=== PATIENT | male | born 1985 | race Caucasian/White ===

== ENCOUNTER 2017-10-27 00:43 | Observation (INO) | payer OTHER ==
[~2017-10-27] VITALS: Ht 185.4 cm; Wt 115.0 kg
[~2017-10-27 00:43] MED LIST: Z.0.NO CURRENT MEDS
[2017-10-27 00:44] VITALS: BP 152/95; PULSE 68; RESP 16; TEMP 97.9; O2SAT 99
[2017-10-27] MEDS ORDERED: SODIUM CHLORIDE 0.9% FLUSH 10 ML FLUSH IVF PRN (01:00)
[2017-10-27] MEDS ORDERED: NITROGLYCERIN 2% OINT 1 GM PACKET TOPICAL ONE (01:15)
[2017-10-27] MEDS ORDERED: ASPIRIN 325 MG TAB PO ONE (01:15)
[2017-10-27] MEDS ORDERED: NITROGLYCERIN 2% OINT 1 GM PACKET ONE (01:33)
[2017-10-27] MEDS ORDERED: ASPIRIN 325 MG TAB ONE (01:33)
--- NOTE | 2017-10-27 02:17 | RADRPT ---
EXAM DATE/TIME: 10/27/2017 01:11 [place] COMPARISON: CHEST PA & LAT, November 14, 2005, 11:45. INDICATIONS : Chest pressure. MEDICAL HISTORY : None. SURGICAL HISTORY : None. ENCOUNTER: Initial ACUITY: 1 day PAIN SCORE: 5/10 LOCATION: Bilateral chest FINDINGS: A single view of the chest demonstrates the lungs to be symmetrically aerated without evidence of mas s, infiltrate or effusion. The cardiomediastinal contours are unremarkable. Osseous structures are intact. CONCLUSION: Normal one view chest x-ray. Geo Siddiqui MD on October 27, 2017 at 1:35 Board Certified Radiologist. This report was verified electronically.
[2017-10-27 02:28] LABS: AUTOMATED NEUTROPHIL # 4.4 TH/MM3 (1.8-7.7); BASOPHIL # 0.1 TH/MM3 (0-0.2); BASOPHIL % 1.1 % (0.0-2.0); EOSINOPHIL # 0.2 TH/MM3 (0-0.4); EOSINOPHIL % 2.1 % (0.0-4.0); HEMATOCRIT 39.5 % (39.0-51.0); HEMOGLOBIN 13.9 GM/DL (13.0-17.0); LYMPH % 31.3 % (9.0-44.0); LYMPHOCYTE # 2.3 TH/MM3 (1.0-4.8); MEAN CELL VOLUME 84.9 FL (80.0-100.0); MEAN CORPUSCULAR HEMOGLOBIN 29.9 PG (27.0-34.0); MEAN CORPUSCULAR HGB CONC 35.3 % (32.0-36.0); MEAN PLATELET VOLUME 7.5 FL (7.0-11.0); MONO % 7.1 % (0.0-8.0); MONOCYTE # 0.5 TH/MM3 (0-0.9); NEUT % 58.4 % (16.0-70.0); PLATELET COUNT 334 TH/MM3 (150-450); RED BLOOD COUNT 4.66 MIL/MM3 (4.50-5.90); RED CELL DISTRIBUTION WIDTH 12.7 % (11.6-17.2); WHITE BLOOD COUNT 7.5 TH/MM3 (4.0-11.0)
[2017-10-27 02:33] LABS: ALKALINE PHOSPHATASE 57 U/L (45-117); ALT (GPT) 21 U/L (12-78); AST (GOT) 14 U/L (15-37); BICARBONATE 28.1 MEQ/L (21.0-32.0); BLOOD UREA NITROGEN 12 MG/DL (7-18); CHLORIDE 104 MEQ/L (98-107); GLOMERULAR FILTRATION RATE 98 ML/MIN (>89); GLUCOSE,RANDOM 89 MG/DL (74-106); MAGNESIUM 1.8 MG/DL (1.5-2.5); SODIUM (NA) 139 MEQ/L (136-145); TOTAL BILIRUBIN ADULT 0.5 MG/DL (0.2-1.0); TOTAL PROTEIN 7.4 GM/DL (6.4-8.2); TROPONIN I LESS THAN 0.02 NG/ML (0.02-0.05)
[2017-10-27 02:34] LABS: D-DIMER 0.14 MG/L FEU (0.00-0.50); INTERNATIONAL NORMALIZED RATIO 1.1 RATIO; PROTHROMBIN TIME - PATIENT 10.8 SEC (9.8-11.6)
[2017-10-27 06:00] VITALS: BP 101/51; PULSE 54; RESP 20; O2SAT 96
[2017-10-27] MEDS ORDERED: SODIUM CHLORIDE 0.9% FLUSH 10 ML FLUSH IV FLUSH PRN (06:45)
[2017-10-27 07:27] VITALS: BP 143/70; PULSE 57; RESP 17; O2SAT 98
[2017-10-27] MEDS ORDERED: SODIUM CHLORIDE 0.9% FLUSH 10 ML FLUSH IV FLUSH SCH (09:00)
[2017-10-27] MEDS ORDERED: ONDANSETRON HCL 4 MG/2 ML VIAL IV PUSH PRN (09:15)
[2017-10-27] MEDS ORDERED: NITROGLYCERIN 0.4 MG SL 25 TABS/BTL SL PRN (09:15)
[2017-10-27] MEDS ORDERED: ACETAMINOPHEN 500 MG CPLT PO PRN (09:15)
--- NOTE | 2017-10-27 09:15 | EKG ---
Date Performed: 10/27/2017 Time Performed: 04:04:11 PTAGE: 32 years EKG: SINUS BRADYCARDIA WITH SINUS ARRHYTHMIA ST ABNORMALITY, CONSIDER EARLY REPOLARIZATION ABNOR MAL ECG PREVIOUS TRACING : 10/27/2017 01.14 No significant change from previous tracing noted. DOCTOR: Leobardo Coleman Interpretating Date/Time 10/27/2017 09:14:51
--- NOTE | 2017-10-27 09:17 | EKG ---
Date Performed: 10/27/2017 Time Performed: 01:14:24 PTAGE: 32 years EKG: Sinus rhythm WITH SINUS ARRHYTHMIA INFERIOR MYOCARDIAL INFARCTION ABNORMAL ECG NO PREVIOUS TRACING DOCTOR: Leobardo Coleman Interpretating Date/Time 10/27/2017 09:16:21
--- NOTE | 2017-10-27 09:52 | HHI.HP ---
HPI Primary Care Physician No Primary Care Physician Chief Complaint Chest pounding History of Present Illness 32-year-old male with no past significant medical history presents to the emergency room for further evaluation of chest pounding. Onset 11 PM, nonexertional. 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 Characterized as a slow pounding heart beat, accompanied by weakness and mild dyspnea. Denied dizziness, vertigo or chest pain. Severity moderate. Duration 3 hours. No associated symptoms of nausea, vomiting, or diaphoresis. No known precipitating or relieving factors. Denies similar pain in the past. Review of Systems General: No fatigue,weakness, fever, chills, recent illness, or change in appetite. Has been in his general state of health, with mild feelings of cold like symptoms x3 weeks. HEENT: No NGUYEN, no vision changes, no nasal congestion or drainage, no dysphasia CV: As stated above. Never had any chest pain or pressure. No rotation sore dizziness RESP: Dyspnea resolved. Never hurt to take a deep breath. No cough, wheeze, or asthma GI: No nausea, vomiting, bowel changes, diarrhea, constipation, pain, distention , melena, or blood in the stool. No unintentional weight gain or weight loss. No change in appetite, endorses "eating a bad diet." : No dysuria, urgency, frequency EXT: No lower leg edema, no paraesthesias MS: No discomfort, recent injury, trauma, or change in ROM NEURO: No change in memory, difficulty with balance, LOC, motor/sensory deficits PSYCH: No anxiety, depression. Endorses possible current work related stress. SKIN: No rashes, no concerning lesions Past Family Social History Allergies: Coded Allergies: No Known Allergies (Verified Allergy, Unknown, 10/27/17) Past Medical History None Past Surgical History Appendectomy, wisdom teeth extracted Reported Medications Reported Meds & Active Scripts Active No Active Prescriptions or Reported Medications Active Ordered Medications Current Medications Medications (Trade) Dose Ordered Sig/Jae Route Start Time Stop Time Status Last Admin (NS Flush) 2 ml UNSCH PRN IVF 10/27/17 01:00 (NS Flush) 2 ml UNSCH PRN IV FLUSH 10/27/17 06:45 (NS Flush) 2 ml BID IV FLUSH 10/27/17 09:00 (Tylenol) 500 mg Q4H PRN PO 10/27/17 09:15 (Zofran Inj) 4 mg Q6H PRN IV PUSH 10/27/17 09:15 (Nitrostat Sl) 0.4 mg Q5M PRN SL 10/27/17 09:15 Family History Father SD age 55, paternal grandfather SD age 55 Social History No known hypertension, hyperlipidemia, or diabetes. Chews tobacco. Occasional alcohol use. Denies any illegal drug use. . 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 Runs 4-5 miles most days. . Past cardiac testing None Physical Exam Vital Signs Vital Signs Date Time Temp Pulse Resp B/P (MAP) Pulse Ox O2 Delivery O2 Flow Rate FiO2 10/27/17 07:27 57 17 143/70 (94) 98 Room Air 10/27/17 06:34 97 Room Air 10/27/17 06:00 54 20 101/51 (68) 96 Room Air 10/27/17 00:44 97.9 68 16 152/95 (114) 99 Room Air Physical Exam GENERAL: Alert WN, WD, NAD, pleasant, moderately obese, male HEAD: NC, AT CV: RRR, without murmur, rub, gallop, no JVD, S1-S2 no S3-S4. Chest wall nontender with palpation. RESP: Clear lungs throughout bilateral, no crackles, wheeze, rhonchi, symmetrical chest rise, nonlabored, able to speak in full sentences ABD: Soft, NT, ND, no masses, positive bowel tones BACK: No scoliosis EXT: Pulses +24, no dependent edema MS: Normal tone 4 extremities, nontender, no obvious deformities, full range of motion NEURO: CN II through CN XII grossly intact, motor strength 5/5 PSYCH: A+O 3, pleasant affect, appropriate speech, mood, insight and judgment SKIN: Normal turgor, normal texture, no lesions, no rashes, brisk cap refill, even hair distribution, multiple tattoos Laboratory Laboratory Tests Test 10/27/17 01:15 10/27/17 04:12 White Blood Count 7.5 Red Blood Count 4.66 Hemoglobin 13.9 Hematocrit 39.5 Mean Corpuscular Volume 84.9 Mean Corpuscular Hemoglobin 29.9 Mean Corpuscular Hemoglobin Concent 35.3 Red Cell Distribution Width 12.7 Platelet Count 334 Mean Platelet Volume 7.5 Neutrophils (%) (Auto) 58.4 Lymphocytes (%) (Auto) 31.3 Monocytes (%) (Auto) 7.1 Eosinophils (%) (Auto) 2.1 Basophils (%) (Auto) 1.1 Neutrophils # (Auto) 4.4 Lymphocytes # (Auto) 2.3 Monocytes # (Auto) 0.5 Eosinophils # (Auto) 0.2 Basophils # (Auto) 0.1 CBC Comment DIFF FINAL Differential Comment Prothrombin Time 10.8 Prothromb Time International Ratio 1.1 Activated Partial Thromboplast Time 26.6 D-Dimer Quantitative (PE/DVT) 0.14 Blood Urea Nitrogen 12 Creatinine 0.90 Random Glucose 89 Total Protein 7.4 Albumin 4.0 Calcium Level 9.0 Magnesium Level 1.8 Alkaline Phosphatase 57 Aspartate Amino Transf (AST/SGOT) 14 Alanine Aminotransferase (ALT/SGPT) 21 Total Bilirubin 0.5 Sodium Level 139 Potassium Level 3.6 Chloride Level 104 Carbon Dioxide Level 28.1 Anion Gap 7 Estimat Glomerular Filtration Rate 98 Total Creatine Kinase 131 Creatine Kinase MB LESS THAN 0.5 Troponin I LESS THAN 0.02 LESS THAN 0.02 B-Type Natriuretic Peptide 14 Thyroid Stimulating Hormone 3rd Gen 1.160 Result Diagram: 10/27/175 10/27/17 0115 Imaging Last 48 hours Impressions Chest X-Ray 10/27/17 0056 Signed Impressions: Service Date/Time: Friday, October 27, 2017 01:11 - CONCLUSION: Normal one view chest x-ray. Geo Siddiqui MD Course EKG Normal sinus rhythm, normal axis, no ST segment changes Caprini VTE Risk Assessment Caprini VTE Risk Assessment: No/Low Risk (score <= 1) Caprini Risk Assessment Model Point Value = 1 Point Value = 2 Point Value = 3 Point Value = 5 Age 41-60 Minor surgery BMI > 25 kg/m2 Swollen legs Varicose veins or History of unexplained or recurrent spontaneous Oral contraceptives or hormone replacement Sepsis (< 1 month) Serious lung disease, including pneumonia (< 1 month) Abnormal pulmonary function Acute myocardial infarction Congestive heart failure (< 1 month) History of inflammatory bowel disease Medical patient at bed rest Age 61-74 Arthroscopic surgery Major open surgery (> 45 min) Laparoscopic surgery (> 45 min) Malignancy Confined to bed (> 72 hours) Immobilizing plaster cast Central venous access Age >= 75 History of VTE Family history of VTE Factor V Leiden Prothrombin [id number] Lupus anticoagulant Anticardiolipin antibodies Elevated serum homocysteine Heparin-induced thrombocytopenia Other congenital or acquired thrombophilia Stroke (< 1 month) Elective arthroplasty Hip, pelvis, or leg fracture Acute spinal cord injury (< 1 month) Prophylaxis Regimen Total Risk Factor Score Risk Level Prophylaxis Regimen 0-1 Low Early ambulation 2 Moderate Order ONE of the following: *Sequential Compression Device (SCD) *Heparin 5000 units SQ BID 3-4 Higher Order ONE of the following medications: *Heparin 5000 units SQ TID *Enoxaparin/Lovenox 40 mg SQ daily (WT < 150 kg, CrCl > 30 mL/min) *Enoxaparin/Lovenox 30 mg SQ daily (WT < 150 kg, CrCl > 10-29 mL/min) *Enoxaparin/Lovenox 30 mg SQ BID (WT < 150 kg, CrCl > 30 mL/min) AND/OR *Sequential Compression Device (SCD) 5 or more Highest Order ONE of the following medications: *Heparin 5000 units SQ TID (Preferred with Epidurals) *Enoxaparin/Lovenox 40 mg SQ daily (WT < 150 kg, CrCl > 30 mL/min) *Enoxaparin/Lovenox 30 mg SQ daily (WT < 150 kg, CrCl > 10-29 mL/min) *Enoxaparin/Lovenox 30 mg SQ BID (WT < 150 kg, CrCl > 30 mL/min) AND *Sequential Compression Device (SCD) Assessment and Plan Assessment and Plan #1 Atypical chest discomfort-admitted chest pain center. Protocol to rule out ACS initiated in ER. Currently ruled out with 2 sets of EKGs and cardiac enzymes. Will be seen and evaluated by Dr. Kermit Ann this morning. Reassurance provided discomfort not likely cardiac related. Highly stressed the importance of establishing with a primary care provider for preventative medical care and medical management. Discussed likely will complete an exercise stress test after evaluation by cardiac care unit nurse. Patient and agreeable to plan of care. #2 Tobacco use-strongly encouraged and stressed the importance of tobacco cessation. Instructed to quit chewing tobacco. Encouraged establishing with a primary care provider. Francheska Garcia Oct 27, 2017 09:52
[2017-10-27 10:08] VITALS: BP 121/68; PULSE 52; RESP 17; O2SAT 100
[2017-10-27 10:41] LABS: TROPONIN I LESS THAN 0.02 NG/ML (0.02-0.05)
--- NOTE | 2017-10-27 11:26 | EKG ---
Date Performed: 10/27/2017 Time Performed: 10:06:04 PTAGE: 32 years EKG: SINUS BRADYCARDIA EARLY REPOLARIZATION BORDERLINE ECG PREVIOUS TRACING : 10/27/2017 04.04 No significant change from previous tracing noted. DOCTOR: Leobardo Coleman Interpretating Date/Time 10/27/2017 11:25:32
--- NOTE | 2017-10-27 13:21 | PD.CARD.PN ---
Subjective Subjective Remarks Patient's medical records were reviewed patient was personally seen and examined and will be discussed with the nurse practitioner. 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 The symptoms lasted for about 3 hours. There were not clearly associated with an episode of stress although after prolonged discussion he certainly has some significant stress. He is active and runs 4 miles several times a week and has no symptoms with exertion and no prior history. His predominant risk factor is chewing tobacco and a "bad diet" Objective Medications Current Medications Medications (Trade) Dose Ordered Sig/Jae Route Start Time Stop Time Status Last Admin (NS Flush) 2 ml UNSCH PRN IVF 10/27/17 01:00 (NS Flush) 2 ml UNSCH PRN IV FLUSH 10/27/17 06:45 (NS Flush) 2 ml BID IV FLUSH 10/27/17 09:00 (Tylenol) 500 mg Q4H PRN PO 10/27/17 09:15 (Zofran Inj) 4 mg Q6H PRN IV PUSH 10/27/17 09:15 (Nitrostat Sl) 0.4 mg Q5M PRN SL 10/27/17 09:15 Vital Signs / I&O Vital Signs Date Time Temp Pulse Resp B/P (MAP) Pulse Ox O2 Delivery O2 Flow Rate FiO2 10/27/17 10:08 52 17 121/68 (85) 100 Room Air 10/27/17 07:27 57 17 143/70 (94) 98 Room Air 10/27/17 06:34 97 Room Air 10/27/17 06:00 54 20 101/51 (68) 96 Room Air 10/27/17 00:44 97.9 68 16 152/95 (114) 99 Room Air Physical Exam Well-nourished well-developed young man HEENT ears nose and throat unremarkable Skin profusely tattooed right arm and chest Cardiovascular regular sinus rhythm with no gallops rubs or murmurs Laboratory Laboratory Tests Test 10/27/17 01:15 10/27/17 04:12 10/27/17 09:50 White Blood Count 7.5 TH/MM3 Red Blood Count 4.66 MIL/MM3 Hemoglobin 13.9 GM/DL Hematocrit 39.5 % Mean Corpuscular Volume 84.9 FL Mean Corpuscular Hemoglobin 29.9 PG Mean Corpuscular Hemoglobin Concent 35.3 % Red Cell Distribution Width 12.7 % Platelet Count 334 TH/MM3 Mean Platelet Volume 7.5 FL Neutrophils (%) (Auto) 58.4 % Lymphocytes (%) (Auto) 31.3 % Monocytes (%) (Auto) 7.1 % Eosinophils (%) (Auto) 2.1 % Basophils (%) (Auto) 1.1 % Neutrophils # (Auto) 4.4 TH/MM3 Lymphocytes # (Auto) 2.3 TH/MM3 Monocytes # (Auto) 0.5 TH/MM3 Eosinophils # (Auto) 0.2 TH/MM3 Basophils # (Auto) 0.1 TH/MM3 CBC Comment DIFF FINAL Differential Comment Prothrombin Time 10.8 SEC Prothromb Time International Ratio 1.1 RATIO Activated Partial Thromboplast Time 26.6 SEC D-Dimer Quantitative (PE/DVT) 0.14 MG/L FEU Blood Urea Nitrogen 12 MG/DL Creatinine 0.90 MG/DL Random Glucose 89 MG/DL Total Protein 7.4 GM/DL Albumin 4.0 GM/DL Calcium Level 9.0 MG/DL Magnesium Level 1.8 MG/DL Alkaline Phosphatase 57 U/L Aspartate Amino Transf (AST/SGOT) 14 U/L Alanine Aminotransferase (ALT/SGPT) 21 U/L Total Bilirubin 0.5 MG/DL Sodium Level 139 MEQ/L Potassium Level 3.6 MEQ/L Chloride Level 104 MEQ/L Carbon Dioxide Level 28.1 MEQ/L Anion Gap 7 MEQ/L Estimat Glomerular Filtration Rate 98 ML/MIN Total Creatine Kinase 131 U/L 111 U/L Creatine Kinase MB LESS THAN 0.5 NG/ML LESS THAN 0.5 NG/ML Troponin I LESS THAN 0.02 NG/ML LESS THAN 0.02 NG/ML LESS THAN 0.02 NG/ML B-Type Natriuretic Peptide 14 PG/ML Thyroid Stimulating Hormone 3rd Gen 1.160 uIU/ML Imaging Last 24 hours Impressions Chest X-Ray 10/27/17 0056 Signed Impressions: Service Date/Time: Friday, October 27, 2017 01:11 - CONCLUSION: Normal one view chest x-ray. Geo Siddiqui MD Assessment and Plan Assessment and Plan Patient symptoms appear more likely to be stress related than cardiac however he will be carefully evaluated ruled out using chest pain center protocol for ACS and then evaluated with an exercise stress test. I had a long discussion regarding management distress and developing a more healthy lifestyle. Code Status Full code Discussed Condition With Current condition was discussed with the nurse practitioner the patient and his sister. Kermit Ann MD Oct 27, 2017 13:21
--- NOTE | 2017-10-27 14:59 | HHI.DCPOC ---
Discharge Care Plan Diagnosis: (1) Atypical chest pain (2) Tobacco abuse Goals to Promote Your Health * To prevent worsening of your condition and complications * To maintain your health at the optimal level Directions to Meet Your Goals Take your medications as prescribed Follow your dietary instruction Follow activity as directed Keep your appointments as scheduled Take your immunizations and boosters as scheduled If your symptoms worsen call your PCP, if no PCP go to Urgent Care Center or Emergency Room Smoking is Dangerous to Your Health. Avoid second hand smoke Call the 24-hour hour crisis hotline for domestic abuse at Francheska Garcia Oct 27, 2017 14:59
[2017-10-27 15:07] VITALS: BP 130/60; PULSE 96; RESP 18; TEMP 98.2; O2SAT 97
--- NOTE | 2017-10-28 16:40 | TR ---
Date Performed: 10/27/2017 Time Performed: 14:27:42 DOCTOR: Bereket Huynh DRUG LIST: CLINICAL HISTORY: CHEST PAIN REASON FOR TEST: REASON FOR ENDING: OBSERVATION: CONCLUSION: Te protocol completed. Stopped sec to exceeding target heart rate and leg fatigue . Maximum XM=745 Target HR Achieved=93.0% Maximum MW=394/82 Total Exercise Time=10:01. No reprod ches t discomfort. No ectopy. Great exercise tolerance. St segments nondiagnostic. Recovery quick and unre markable. COMMENTS: Patient exercised using the Te protocol. No electrocardiographic changes were seen to suggest ischemia. Hemodynamic response to exercise was normal. No significant arrhythmia was prese nt.
== END 2017-10-27 16:08 | disposition home or self-care (01) ==
LOC: NEPE 00:43 → NEDA 08:40 → NEPHCDU 10:21
PROVIDERS: ADMIT Internal Medicine Interventional Cardiology; ATTEND Internal Medicine Interventional Cardiology
DX: R07.89 Other chest pain (principal); F17.200 Nicotine dependence, unspecified, uncomplicated; R53.1 Weakness; R06.00 Dyspnea, unspecified; R00.1 Bradycardia, unspecified; R94.31 Abnormal electrocardiogram [ECG] [EKG]
CPT/HCPCS: 71045; 80053; 82550; 82552; 83735; 83880; 84443; 84484; 85025; 85379; 85610; 85730; 93005; 93017; 99285; G0378